=== PATIENT | female | born 1990 | race Caucasian/White ===

== ENCOUNTER 2016-12-28 21:10 | Emergency (ER) | payer OTHER ==
[2016-12-28 21:18] VITALS: BP 144/84
[2016-12-28] MEDS ORDERED: KETOROLAC TROMETHAMINE 60 MG/2 ML VIAL IM ONE ×2 (21:18→21:21)
[2016-12-28] MEDS ORDERED: ORPHENADRINE CITRATE 30 MG/ML VIAL IM ONE (21:18)
[2016-12-28] MEDS ORDERED: ORPHENADRINE CITRATE 30 MG/ML VIAL ONE (21:21)
--- NOTE | 2016-12-28 21:35 | ERNOTE ---
Back Pain ER HPI Date of Service: 12/28/16 Presenting Symptoms: injury/pain to back Source: patient Exam Limitations: no limitations Immunizations: IMMUNIZATION HX Immunizations Up to Date Yes History of Influenza Vaccine Yes Allergies/Adverse Reactions: Allergies penicillin G procaine Allergy (Mild, Verified 12/28/16 21:18) Hives Home Medications: HOME MEDICATIONS Ibuprofen [Motrin] 200 - 800 mg PO Q6H PRN #100 tab 11/15/15 [Last Taken Unknown ] Cyclobenzaprine HCl [Flexeril] 10 mg PO TID PRN #30 tab 12/28/16 [Last Taken Unknown] Naproxen [Naprosyn] 500 mg PO BID PRN #60 tab 12/28/16 [Last Taken Unknown] Naratriptan HCl [Amerge] 2.5 mg PO PRN 12/28/16 [Last Taken Unknown] Narrative: Pt. comes in with c/o low back pain that started 11 hours ago when she sat down. Since then the pt. notes pain whenever she is up moving but states that Pt. denies any numbness, tingling, or decreased ROM. laying flat improves the pain slightly. Pt. denies any prehospital treatment. Pt. denies any numbness, tingling, or incontinence. Review of Systems - Review of Systems Constitutional: Present: no symptoms reported. Absent: recent illness, fever, chills, weakness, fatigue, malaise EYE: Present: no symptoms reported ENT: Present: no symptoms reported Respiratory: Present: no symptoms reported. Absent: shortness of breath, cough , wheezing Cardiology: Present: no symptoms reported. Absent: chest pain, palpitations, edema Musculoskeletal: Present: back pain, muscle pain - B paraspinous Neurological: Present: no symptoms reported. Absent: headache, dizziness/light- headedness, numbness, tingling All Other Systems: All systems neg except as marked - Patient's Past Medical History Patient History - Medical: No pertinent hx Patient History - Cardiac/Respiratory: No pertinent hx Patient History - Cancer: No Hx of Cancer Patient History - Other: None - Social History Living Situations: spouse Abuse History: No History of abuse Psych History: No pertinent hx Smoking Status: Never smoker Alcohol Use: none Drug Use: none - Immunizations Immunizations Up to Date: Yes History of Influenza Vaccine: Yes Physical Exam - Physical Exam General Appearance: Present: wd/wn, alert, no apparent distress Eye Exam: Normal inspection: bilateral, PERRL: bilateral, EOMI: bilateral Ears, Nose, Throat: Present: normal ENT inspection, normal pharynx Neck: Present: normal inspection, nontender. Absent: lymphadenopathy (R), lymphadenopathy (L) Respiratory: Present: no respiratory distress, normal breath sounds, no accessory muscle use, chest nontender, lungs clear Cardiovascular/Chest: Present: regular rate, rhythm, no murmur, normal peripheral pulses Gastrointestinal/Abdominal: Present: normal bowel sounds, nontender, nondistended, soft, no organomegaly Back Exam: Present: no CVA tenderness, vertebral tenderness - L1-L3, decreased range of motion, muscle spasm - B paraspinous Extremity Exam: Present: normal inspection, non-tender, normal range of motion, no edema Neurological Exam: Present: alert, oriented, normal mood/affect, no motor/ sensory deficits Skin Exam: Present: normal color, warm/dry. Absent: pallor, skin rash ED Progress - Vital Signs Patient's Vital Signs:: I have reviewed the patient's vital signs. Vital Signs: Vital Signs 12/28/16 21:14 Temperature 36.5 C Pulse Rate 81 Respiratory 18 Rate Blood Pressure 144/84 O2 Sat by Pulse 100 Oximetry - X-Ray X-Ray #1 X-Ray: lumbosacral Interpretation: Interp. by me X-ray Comments: straightening of the lordosis but no other acute ossious abnormality - Progress/Reassessment Chief Complaint: Back Pain Progress:: Improved Departure Clinical Impression: Lumbar strain Qualifiers: Encounter type: initial encounter Qualified Code(s): S39.012A - Strain of muscle, fascia and tendon of lower back, initial encounter - Departure Disposition: Home self-care Condition: Good Instructions: Muscle Strain, [id number] Additional Instructions: Please follow up with primary provider in 2-3 days. Please use heat on back and no lifting for 3 days...If not improved in 3 days please follow up with primary provider for frther referral for MRI or back specialist. Referrals: Win Craven MD [Primary Care Provider] - Prescriptions: Cyclobenzaprine HCl [Flexeril] 10 mg PO TID PRN #30 tab PRN Reason: MUSCLE SPASMS Naproxen [Naprosyn] 500 mg PO BID PRN #60 tab PRN Reason: Pain
== END 2016-12-28 22:04 | disposition home or self-care (01) ==
LOC: ER 21:10
DX: S39.012A Strain of muscle, fascia and tendon of lower back, initial encounter (principal)